=== PATIENT | female | born 1930 | race Caucasian/White ===

== ENCOUNTER → 2019-01-06 | Outpatient (CLI) | payer MEDICARE ==
[~2019-01-06] MED LIST: AMLO5 PO; Amitiza8 MCG PO; CALCAVITD PO; ERGO400 PO; FISH1000 PO; FLAX PO; GABA300 PO; GABA300T24; HYDCHL12.5 PO; LEVSOD88 PO; LOSA50 PO; MULVITMINF PO; PRESERVISION PO; SIMV10 PO
== END | disposition home or self-care (01) ==
LOC: LAB SHORT 07:40 → PLD 07:40
DX: D04.72 Carcinoma in situ of skin of left lower limb, including hip (principal); C44.722 Squamous cell carcinoma of skin of right lower limb, including hip
CPT/HCPCS: 88305